=== PATIENT | female | born 1960 | race Caucasian/White ===

== ENCOUNTER 2020-03-14 09:19 | Emergency (ER) | payer OTHER, SELFPAY ==
--- NOTE | 2020-03-14 09:34 | HMH.EDUTC ---
[facility] [place] Clinical Impression: Viral syndrome, Exposure to COVID-19 virus Disposition: Home, Self-Care Condition on Discharge: Good Instructions: Preventing the Spread of Coronavirus Discharge Instructions Additional Instructions: Drink plenty of fluids. Take tylenol for pain or fever. Return if you begin to have difficulty breathing. Follow up with your regular doctor. GO TO THE ER FOR ANY WORSENING SYMPTOMS Referrals: PCP,No [Primary Care Provider] - Time of Disposition: 09:49 Medical Decision Making - Medical Records Medical records reviewed: No: I reviewed the patient's medical records. - Elijah Inquiry Pt receiving controlled substance: No Vital Signs: 03/14/20 09:35 03/14/20 09:54 Temperature 98.6 F 98.6 F Temperature Source Oral Oral Pulse Rate 96 H Pulse Rate [Radial] 96 H Respiratory Rate 19 19 Blood Pressure 135/75 Blood Pressure [Right Arm] 135/75 Blood Pressure Mean [Right Arm] 95 Blood Pressure Source Automatic Cuff Blood Pressure Source [Right Arm] Automatic Cuff Blood Pressure Position Sitting Blood Pressure Position [Right Arm] Sitting 02 Sat by Pulse Oximetry 98 Oxygen Delivery Method Room Air Room Air - Lab Data Lab Results 03/14/20 09:28: Influenza Type A Ag Negative, Influenza Type B Ag Negative Orders (Tests/Meds): ORDERS Category Date Time Status Covid-19 Nasal PCR Sendout [facility] 03/14/20 09:28 [place]dered [facility] [place] - General Stated complaint: body aches, chills Time Seen by Provider: 03/14/20 09:34 - History of Present Illness Provider Complaint: She states that since yesterday she has had chilling, fever and malaise. - Related Data Home Medications Medication Instructions Recorded Confirmed No Known Home Medications 10/26/17 10/26/17 Allergies Allergy/AdvReac Type Severity Reaction Status Date / Time No Known Allergies Allergy Verified 10/26/17 12:43 [facility] History - Hepatitis A Screen Attestation statement:: This patient has been screened for Hepatitis A risk factors. I have reviewed the patient's past medical history: Yes Other Surgeries: Yes: No Previous Surgery - Social History Smoking Status: Never smoker Alcohol Intake: current Alcohol Intake Frequency:: holidays/special occasions only Occupational Status: employed Household Members: family Family Hx:: Cancer, Stroke, Hypertension ROS Obtained: Yes All systems reviewed & no additional complaints - Constitutional Constitutional: Reports system reviewed and no additional complaints, except as docu - Eyes Eyes: Reports system reviewed and no additional complaints, except as docu - ENT Ears, Nose, Mouth, and Throat: Reports system reviewed and no additional complaints, except as docu - Cardiovascular Cardiovascular: Reports system reviewed and no additional complaints, except as docu - Respiratory Respiratory: Yes system reviewed and no additional complaints, except as docu Physical Exam - General General appearance: alert, in no apparent distress - Head Head exam: atraumatic, normocephalic, normal inspection - Eye Eye exam: Present: normal appearance, PERRL, EOMI - ENT ENT exam: Present: normal exam, normal oropharynx, mucous membranes moist, TM's normal bilaterally, normal external ear exam - Neck Neck exam: Present: normal inspection, full ROM, trachea midline. Absent: meningismus, lymphadenopathy - Chest Chest inspection: Present: normal inspection, symmetric chest wall rise. Absent: tenderness - Respiratory Respiratory exam: Present: normal lung sounds bilaterally. Absent: respiratory distress - Cardiovascular Cardiovascular exam: Present: regular rate, normal rhythm. Absent: JVD - Abdominal Exam Abdominal exam: Present: soft, normal bowel sounds. Absent: distention, tenderness, guarding - Extremities Exam Extremities exam: Present: normal inspection, full ROM, normal capillary refill. Absen
[2020-03-14 09:35] VITALS: BP 135/75; PULSE 96; RESP 19; TEMP 37; O2SAT 98; BMI 29.9
[2020-03-14 09:52] LABS: UTC Influenza A Antigen Negative (Negative)
[2020-03-14 09:53] LABS: UTC Influenza B Antigen Negative (Negative)
[2020-03-14 09:54] VITALS: BP 135/75; PULSE 96; RESP 19; TEMP 37; O2SAT 98
[2020-03-15 17:37] LABS: Covid-19 Nasal PCR Sendout Lex Not Detected
== END 2020-03-14 09:57 | disposition home or self-care (01) ==
PROVIDERS: Emergency Provider Nurse Practitioner Family
DX: Z20.828 Contact with and (suspected) exposure to other viral communicable diseases (principal); B34.9 Viral infection, unspecified
CPT/HCPCS: 87804; 99201; U0004